=== PATIENT | male | born 1995 | race Caucasian/White ===

== ENCOUNTER 2021-12-12 07:28 | Day surgery (SDC) | payer OTHER, MEDICAID ==
[2021-12-12] MEDS ORDERED: Lidocaine 1% PF 2 ML SDV INJECT ONE (07:47)
[2021-12-12] MEDS: Ibuprofen 400 MG Tab PO ONE (07:57)
[2021-12-12] MEDS: Acetaminophen/HYDROcodone 325-10 MG Tab PO ONE (08:00)
[2021-12-12] MEDS ORDERED: ceFAZolin 1 GM Vial IM ONE (08:05)
[2021-12-12] MEDS ORDERED: ceFAZolin 1 GM in Premix Bag 1 BAG IV ONE (08:09)
[2021-12-12] MEDS: Diphtheria,Pertussis(Acell),Tetanus Vaccine 0.5 ML Syringe IM ONE (08:46)
[2021-12-12] MEDS: ceFAZolin 1 GM in Premix Bag 1 BAG IV ONE (08:47)
[2021-12-12] MEDS: Sodium Chloride 0.9% 10 ML Syringe FLUSH PRN (08:48)
[2021-12-12 10:11] LABS: CORONAVIRUS COVID-19 NAA NEGATIVE (NEGATIVE)
[2021-12-12] MEDS ORDERED: Propofol 200 MG/20 ML SDV ONE ×2 (10:21→12:27)
[2021-12-12] MEDS ORDERED: fentaNYL 100 MCG/2 ML SDV ONE ×2 (10:21→12:27)
[2021-12-12] MEDS ORDERED: Midazolam 1 MG/ML 2 ML SDV ONE ×2 (10:21→12:27)
[2021-12-12] MEDS ORDERED: Bupivacaine 0.5% 30 ML SDV ONE (10:54)
[2021-12-12] MEDS: Bupivacaine 0.5% 30 ML SDV INJECT ONE (12:33)
[2021-12-12] MEDS ORDERED: Lactated Ringers 1,000 ML ONE (12:43)
[2021-12-12] MEDS ORDERED: ceFAZolin 1 GM Vial ONE (13:00)
[2021-12-12 14:12] VITALS: BP 128/82; PULSE 74
== END 2021-12-12 14:32 | disposition home or self-care (01) ==
LOC: JP.ED 07:28 → JP.SDS 09:36
PROVIDERS: ATTEND Specialist
DX: S68.012A Complete traumatic metacarpophalangeal amputation of left thumb, initial encounter (principal); S62.522B Displaced fracture of distal phalanx of left thumb, initial encounter for open fracture; I10 Essential (primary) hypertension; F32.A Depression, unspecified; J45.909 Unspecified asthma, uncomplicated; Z87.891 Personal history of nicotine dependence; Z98.890 Other specified postprocedural states; Z01.812 Encounter for preprocedural laboratory examination; Z20.822 Contact with and (suspected) exposure to COVID-19
CPT/HCPCS: 0241U; 26952; 73140-26-FA; 73140-FA; 90471; 90715; 96365; 99284; 99284-25; A9270-GY; J0690; J2250; J2704; J3010; J3490; J7120

== ENCOUNTER 2024-11-20 10:35 | Emergency (ER) | payer BC, OTHER ==
[2024-11-20 14:14] LABS: APPEARANCE,URINE CLEAR (CLEAR); BILIRUBIN,URINE NEGATIVE (NEGATIVE); COLOR,URINE YELLOW (YELLOW); GLUCOSE,URINE NEGATIVE (NEGATIVE); KETONES,URINE NEGATIVE (NEGATIVE); LEUKOCYTE ESTERASE,URINE NEGATIVE (NEGATIVE); NITRITE,URINE NEGATIVE (NEGATIVE); OCCULT BLOOD,URINE NEGATIVE (NEGATIVE); PH,URINE 7.5 (5.0-8.0); PROTEIN,URINE NEGATIVE (NEGATIVE); UROBILINOGEN,URINE 0.2 EU/dL (0.2-1.0)
[2024-11-20 14:26] LABS: AMORPHOUS SEDIMENT,URINE NOT SEEN; BACTERIA,URINE RARE; EPITHELIAL CELLS,URINE RARE; MUCUS,URINE NOT SEEN; RBC,URINE NOT SEEN (0-5); WBC,URINE NOT SEEN (0-5)
== END 2024-11-20 14:26 | disposition home or self-care (01) ==
LOC: JP.ED 10:35
DX: N50.812 Left testicular pain (principal); F17.210 Nicotine dependence, cigarettes, uncomplicated; Z79.899 Other long term (current) drug therapy
CPT/HCPCS: 76870; 81001; 93976; 99284